=== PATIENT | female | born 1960 | race Hispanic/Latino ===

== ENCOUNTER 2016-12-14 19:14 | Emergency (ER) | payer SELFPAY ==
[2016-12-14 19:33] VITALS: BP 143/82; PULSE 72; RESP 18; TEMP 97.9; O2SAT 97
[2016-12-14] MEDS ORDERED: Albuterol-Ipratrop 3 mg / 0.5 (3 ml) UD ONE (20:08)
[2016-12-14] MEDS ORDERED: Albuterol-Ipratrop 3 mg / 0.5 (3 ml) UD INH STA (20:10)
--- NOTE | 2016-12-14 21:07 | ED PDOC ---
HPI: CCC, URI, Sore Throat Time Seen by Provider: 12/14/16 19:42 Chief Complaint (Nursing): Cough, Cold, Congestion Chief Complaint (Provider): Cough x 3 days History Per: Patient History/Exam Limitations: no limitations Onset/Duration Of Symptoms: Days Current Symptoms Are (Timing): Still Present Associated Symptoms: Fever (Tactile ), Cough, Sputum (White ). denies: Sore Throat Past Medical History Vital Signs: Last Vital Signs Temp 97.9 F 12/14/16 19:29 Pulse 72 12/14/16 19:29 Resp 18 12/14/16 19:29 BP 143/82 12/14/16 19:29 Pulse Ox 97 12/14/16 19:29 - Family History Family History: States: Unknown Family Hx - Home Medications Home Medications: Ambulatory Orders Medication Instructions Recorded Cephalexin [Keflex] 500 mg PO BID #14 cap 12/25/15 Amoxicillin/Clavulanate [Augmentin 1 tab PO BID #20 tab 08/13/16 875 MG-125 MG] Albuterol HFA [Ventolin HFA 90 1 puff IH BID PRN #1 unit 12/14/16 mcg/actuation (8 g)] Azithromycin 250 mg PO DAILY #6 tab 12/14/16 - Allergies Allergies/Adverse Reactions: Allergies Allergy/AdvReac Type Severity Reaction Status Date / Time No Known Allergies Allergy Verified 08/13/16 14:19 Review of Systems ROS Statement: Except As Marked, All Systems Reviewed And Found Negative Constitutional: Positive for: Fever. Negative for: Chills Cardiovascular: Negative for: Chest Pain Respiratory: Positive for: Cough. Negative for: Shortness of Breath Physical Exam - Reviewed Nursing Documentation Reviewed: Yes Vital Signs Reviewed: Yes - Physical Exam Appears: Positive for: Well, Non-toxic, No Acute Distress Head Exam: Positive for: ATRAUMATIC, NORMAL INSPECTION, NORMOCEPHALIC Skin: Positive for: Normal Color, Warm, DRY Eye Exam: Positive for: Normal appearance ENT: Positive for: Normal ENT Inspection Neck: Positive for: Normal, Painless ROM Cardiovascular/Chest: Positive for: Regular Rate, Rhythm Respiratory: Positive for: Wheezing (Diffuse ). Negative for: Respiratory Distress Gastrointestinal/Abdominal: Positive for: Normal Exam, Bowel Sounds, Soft Back: Positive for: Normal Inspection Extremity: Positive for: Normal ROM Neurologic/Psych: Positive for: Alert, Oriented - ECG O2 Sat by Pulse Oximetry: 97 Disposition - Clinical Impression Clinical Impression: Acute bronchitis - Patient ED Disposition Is Patient to be Admitted: No Counseled Patient/Family Regarding: Diagnosis, Need For Followup, Rx Given - Disposition Referrals: [facility] [Outside] Disposition: Routine/Home Disposition Time: 21:08 Condition: GOOD Prescriptions: Albuterol HFA [Ventolin HFA 90 mcg/actuation (8 g)] 1 puff IH BID PRN #1 unit PRN Reason: wheezing Azithromycin 250 mg PO DAILY #6 tab Instructions: Acute Bronchitis (ED) Print Language: FAROESE
--- NOTE | 2016-12-15 10:25 | RAD ---
HISTORY: cough x 4 days COMPARISON: Chest x-ray performed 07/11/14 TECHNIQUE: Chest PA and lateral FINDINGS: Examination limited by habitus and hypoinflation. LUNGS: No focal consolidation. Please note that chest x-ray has limited sensitivity for the detection of pulmonary masses. PLEURA: No significant pleural effusion identified. No definite pneumothorax . CARDIOVASCULAR: Heart size appears top normal. OSSEOUS STRUCTURES: Osseous demineralization. Degenerative changes. Mild kyphosis centered at the thoracolumbar spine. VISUALIZED UPPER ABDOMEN: Unremarkable. OTHER FINDINGS: None. IMPRESSION: No focal consolidation, significant pleural effusion, or definite pneumothorax identified.
== END 2016-12-14 21:14 | disposition home or self-care (01) ==
LOC: H.ER 19:14
DX: J20.9 Acute bronchitis, unspecified (principal); R06.2 Wheezing

== ENCOUNTER 2018-06-13 02:00 | Emergency (ER) | payer SELFPAY ==
[2018-06-13 02:37] VITALS: RESP 16
--- NOTE | 2018-06-13 02:58 | ED PDOC ---
HPI: Back Time Seen by Provider: 06/13/18 02:48 Chief Complaint (Nursing): Back Pain Chief Complaint (Provider): back pain History Per: Patient (58 y/o female here with left flank pain intermittent since last night. Denies any dysuria/notes worsening pain with movement.) Past Medical History Reviewed: Historical Data, Nursing Documentation, Vital Signs Vital Signs: Last Vital Signs Temp 98.2 F 06/13/18 02:34 Pulse 63 06/13/18 02:34 Resp 16 06/13/18 02:34 BP 144/67 06/13/18 02:34 Pulse Ox 97 06/13/18 02:34 - Medical History PMH: HTN - Family History Family History: States: Unknown Family Hx - Home Medications Home Medications: Ambulatory Orders Medication Instructions Recorded Cephalexin [Keflex] 500 mg PO BID #14 cap 12/25/15 Amoxicillin/Clavulanate [Augmentin 1 tab PO BID #20 tab 08/13/16 875 MG-125 MG] Albuterol HFA [Ventolin HFA 90 1 puff IH BID PRN #1 unit 12/14/16 mcg/actuation (8 g)] Azithromycin 250 mg PO DAILY #6 tab 12/14/16 Docusate Sodium [Colace] 100 mg PO BID #14 capsule 06/13/18 Ibuprofen [Motrin] 600 mg PO Q8 PRN #21 tab 06/13/18 Phosphate Enema [Fleet Enema 135 135 ml RC ONCE PRN #1 nma 06/13/18 Ml] - Allergies Allergies/Adverse Reactions: Allergies Allergy/AdvReac Type Severity Reaction Status Date / Time No Known Allergies Allergy Verified 04/29/17 02:38 Review of Systems ROS Statement: Except As Marked, All Systems Reviewed And Found Negative Physical Exam - Reviewed Nursing Documentation Reviewed: Yes Vital Signs Reviewed: Yes - Physical Exam Appears: Positive for: Well, Non-toxic, No Acute Distress Head Exam: Positive for: ATRAUMATIC, NORMAL INSPECTION, NORMOCEPHALIC Skin: Positive for: Normal Color, Warm, DRY Eye Exam: Positive for: EOMI, Normal appearance, PERRL ENT: Positive for: Normal ENT Inspection Neck: Positive for: Normal, Painless ROM Cardiovascular/Chest: Positive for: Regular Rate, Rhythm Respiratory: Positive for: CNT, Normal Breath Sounds Gastrointestinal/Abdominal: Positive for: Normal Exam, Soft, Tenderness (left upper quadrant/ left flank) Back: Positive for: Normal Inspection Extremity: Positive for: Normal ROM Neurologic/Psych: Positive for: Alert, Oriented - Laboratory Results Result Diagrams: 06/13/18 03:56 06/13/18 03:56 - ECG O2 Sat by Pulse Oximetry: 97 Medical Decision Making Medical Decision Makin:44 CT Abd Pelvis FINDINGS: The visualized lung bases are unremarkable. Normal unenhanced liver. Normal gallbladder and extrahepatic biliary system. Normal unenhanced spleen. Normal pancreas. Normal bilateral adrenal glands. Normal size of the right kidney. There is no right renal mass. There are no right renal calculi. There is no right hydronephrosis. Normal visualized right ureter. Normal size of the left kidney. There is no left renal mass. There are no left renal calculi. There is no left hydronephrosis. Normal visualized left ureter. Fluid-filled distended stomach. Normal small intestine. Uncomplicated diverticulosis of moderate amount of fecal residue in the colon. The appendix is visualized and appears normal. There is no demonstrated peritoneal fluid. Normal abdominal aorta. Normal inferior vena cava. Normal retroperitoneum. Normal urinary bladder. There is no pelvic mass lesion or lymphadenopathy. There is no pelvic fluid. Normal abdominal wall. Normal osseous structures. IMPRESSION: Gastroparesis/ileus. Constipation. Disposition - Clinical Impression Clinical Impression: Back strain, Constipation - Patient ED Disposition Is Patient to be Admitted: No - Disposition Referrals: [facility] [Outside] Disposition: Routine/Home Disposition Time: 05:02 Condition: FAIR Prescriptions: Docusate Sodium [Colace] 100 mg PO BID #14 capsule Ibuprofen [Motrin] 600 mg PO Q8 PRN #21 tab PRN Reason: Pain, Moderate (4-7) Phosphate Enema [Fleet Enema 135 Ml] 135 ml RC ONCE PRN #1 nma PRN Reason: Constipation Instructions: Constipation in Adults, Low Back Pain (DC) Forms: [facility] ED School/Work Excuse Print Language: EAST TIM[place]ESE
[2018-06-13 03:59] LABS: BASO # 0.1 K/uL (0.0-0.2); BASO % 0.7 % (0.0-2.0); EOS # 0.2 K/uL (0.0-0.7); EOS % 3.3 % (0.0-4.0); HEMOGLOBIN 12.8 g/dL (12.0-16.0); LYMPH # 2.2 K/uL (1.0-4.3); LYMPH % 29.4 % (20.0-40.0); MEAN CELL VOLUME 85.1 fl (81.0-99.0); MEAN CORPUSCULAR HEMOGLOBIN 28.3 pg (27.0-31.0); MEAN CORPUSCULAR HGB CONC 33.3 g/dL (33.0-37.0); MEAN PLATELET VOLUME 9.1 fl (7.2-11.7); MONO # 0.6 K/uL (0.0-0.8); MONO % 8.4 % (0.0-10.0); NEUT # 4.4 K/uL (1.8-7.0); NEUT % 58.2 % (50.0-75.0); NRBC % 0.1 % (0.0-0.0); RBC 4.52 Mil/uL (3.80-5.20); RED CELL DISTRIBUTION WIDTH 12.9 % (11.5-14.5); WHITE BLOOD COUNT 7.5 K/uL (4.8-10.8)
[2018-06-13 04:14] LABS: ALB/GLOB RATIO 1.5 (1.0-2.1); ALBUMIN 4.1 g/dL (3.5-5.0); ALT/SGPT 31 U/L (9-52); AST/SGOT 24 U/L (14-36); BLOOD UREA NITROGEN 13 mg/dl (7-17); CALCIUM 8.7 mg/dL (8.4-10.2); GFR NON-AFRICAN AMERICAN > 60; LIPASE 34 U/L (23-300)
[2018-06-13 04:27] LABS: SQUAMOUS EPITHIAL < 1 /hpf (0-5); URINE BILIRUBIN NEGATIVE (NEGATIVE); URINE BLOOD NEGATIVE (NEGATIVE); URINE CLARITY SLIGHTY-CLOUDY (Clear); URINE COLOR STRAW (YELLOW); URINE GLUCOSE (UA) NEG (NEGATIVE); URINE LEUKOCYTE ESTERASE NEG Leu/uL (Negative); URINE PROTEIN NEGATIVE (NEGATIVE); URINE UROBILINOGEN 0.2-1.0 mg/dL (0.2-1.0)
[2018-06-13 06:32] VITALS: BP 131/62; PULSE 66; TEMP 98; O2SAT 98
--- NOTE | 2018-06-13 08:04 | CARD ---
APPROVED REPORT Date of service: 06/13/2018 EKG Measurement Heart [id number] <Conclusion> Sinus bradycardia Otherwise normal ECG
--- NOTE | 2018-06-13 13:30 | CT ---
Date of service: 06/13/2018 PROCEDURE: CT Abdomen and Pelvis without intravenous contrast HISTORY: left flank pain r/o kidney stone COMPARISON: None. TECHNIQUE: Unenhanced. Neither IV nor oral contrast administered Radiation dose: Total exam DLP = 324.65 mGy-cm. This CT exam was performed using one or more of the following dose reduction techniques: Automated exposure control, adjustment of the mA and/or kV according to patient size, and/or use of iterative reconstruction technique. FINDINGS: LOWER THORAX: Unremarkable. LIVER: Unremarkable. No gross lesion or ductal dilatation. GALLBLADDER AND BILE DUCTS: Unremarkable. PANCREAS: Unremarkable. No gross lesion or ductal dilatation. SPLEEN: Unremarkable. ADRENALS: Unremarkable. No mass. KIDNEYS AND URETERS: Unremarkable. No hydronephrosis. No solid mass. VASCULATURE: Unremarkable. No aortic aneurysm. No atherosclerotic calcification or mural plaque present. BOWEL: Constipation without fecal impaction or obstruction. APPENDIX: Unremarkable. Normal appendix. PERITONEUM: Unremarkable. No free fluid. No free air. LYMPH NODES: Unremarkable. No enlarged lymph nodes. BLADDER: Unremarkable. REPRODUCTIVE: Unremarkable. BONES: No acute fracture. OTHER FINDINGS: None. IMPRESSION: No significant or acute findings to account for/ related to the clinical presentation. Concordant results (preliminary interpretation) provided by [employer]. Procedure Completed: 03:03. Preliminary Report: Dictated and Authenticated: 03:44. Final Interpretation: 13:26. June 13, 2018
== END 2018-06-13 05:10 | disposition home or self-care (01) ==
LOC: H.ER 02:00
DX: S39.012A Strain of muscle, fascia and tendon of lower back, initial encounter (principal); K59.00 Constipation, unspecified; I10 Essential (primary) hypertension

== ENCOUNTER 2018-11-30 15:59 | Emergency (ER) | payer OTHER, SELFPAY ==
--- NOTE | 2018-11-30 17:10 | ED PDOC ---
HPI: Abdomen Time Seen by Provider: 11/30/18 16:14 Chief Complaint (Nursing): Abdominal Pain Chief Complaint (Provider): Abd Pain History Per: Patient History/Exam Limitations: no limitations Outside of [place] travel?: No Current Symptoms Are (Timing): Still Present Location Of Pain/Discomfort: Epigastric, LUQ Quality Of Discomfort: "Pain" Associated Symptoms: Back Pain (left sided ) Exacerbating Factors: Movement Additional History Per: Patient Additional Complaint(s): 58 year old female presents to the emergency room c/o left chest pain below the breast radiating to left flank for 5 days. Patient states pain is worse with movement but its constantly present. She noted pain upon rising from bed and when doing shores around the house. She states she has mild shortness of breath due to pain. Patient also reports intermittent episodes of chills and "feeling" hot. Patient denies cough, urinary complaints, viral illness symptoms in the last few days. Past Medical History Reviewed: Historical Data, Nursing Documentation, Vital Signs Vital Signs: Last Vital Signs Temp 97.9 F 11/30/18 16:04 Pulse 64 11/30/18 16:04 Resp 16 11/30/18 16:04 BP 137/60 11/30/18 16:04 Pulse Ox 99 11/30/18 16:04 Primary Care Provider: Non [facility] Provider, - Medical History PMH: HTN - Surgical History Surgical History: No Surg Hx - Family History Family History: States: Unknown Family Hx - Living Arrangements Living Arrangements: With Family - Social History Alcohol: None Drugs: Denies - Home Medications Home Medications: Ambulatory Orders Medication Instructions Recorded Cephalexin [Keflex] 500 mg PO BID #14 cap 12/25/15 Amoxicillin/Clavulanate [Augmentin 1 tab PO BID #20 tab 08/13/16 875 MG-125 MG] Albuterol HFA [Ventolin HFA 90 1 puff IH BID PRN #1 unit 12/14/16 mcg/actuation (8 g)] Azithromycin 250 mg PO DAILY #6 tab 12/14/16 Docusate Sodium [Colace] 100 mg PO BID #14 capsule 06/13/18 Ibuprofen [Motrin] 600 mg PO Q8 PRN #21 tab 06/13/18 Phosphate Enema [Fleet Enema 135 135 ml RC ONCE PRN #1 nma 12/06/18 Ml] Cyclobenzaprine [Cyclobenzaprine 10 mg PO Q8H PRN #10 tab 11/30/18 HCl] Naproxen 500 mg PO Q12H PRN #30 tab 11/30/18 - Allergies Allergies/Adverse Reactions: Allergies Allergy/AdvReac Type Severity Reaction Status Date / Time No Known Allergies Allergy Verified 04/29/17 02:38 Review of Systems ROS Statement: Except As Marked, All Systems Reviewed And Found Negative Constitutional: Positive for: Chills, Sweats. Negative for: Fever, Weakness, Malaise Eyes: Positive for: Eyelid Inflammation, Redness ENT: Negative for: Ear Pain, Ear Discharge, Nose Pain, Mouth Pain, Throat Pain, Throat Swelling Cardiovascular: Positive for: Chest Pain. Negative for: Palpitations Respiratory: Negative for: Shortness of Breath Gastrointestinal: Negative for: Nausea, Vomiting, Abdominal Pain Genitourinary Female: Negative for: Vaginal Discharge, Vaginal Bleeding Musculoskeletal: Positive for: Back Pain (left flank ) Physical Exam - Reviewed Nursing Documentation Reviewed: Yes Vital Signs Reviewed: Yes - Physical Exam Appears: Positive for: Well, Non-toxic, No Acute Distress Head Exam: Positive for: ATRAUMATIC, NORMAL INSPECTION, NORMOCEPHALIC Skin: Positive for: Normal Color, Warm, DRY Eye Exam: Positive for: Normal appearance, PERRL ENT: Positive for: Normal ENT Inspection. Negative for: Pharyngeal Erythema Neck: Positive for: Normal, Painless ROM Cardiovascular/Chest: Positive for: Bradycardia. Negative for: Chest Non Tender (tenderness under left breast. neg for rashes, redness or wounds. ) Respiratory: Positive for: Normal Breath Sounds Pulses-Radial (L): 2+ Pulses-Radial (R): 2+ Gastrointestinal/Abdominal: Positive for: Normal Exam, Soft Back: Positive for: L CVA Tenderness, R CVA Tenderness. Negative for: Vertebral Tenderness, Decreased ROM Extremity: Positive for: Normal ROM. Negative for: Tenderness, Pedal Edema, Calf Tenderness, Deformity, Swelling Neurological/Psych: Positive for: Awake, Alert, Normal Tone, Oriented - Laboratory Results Result Diagrams: 11/30/18 17:20 11/30/18 17:20 - ECG ECG Rhythm: Positive for: Sinus Bradycardia Interpretation Of ECG: seen and interpretated by dr. cohen. Rate: 56 O2 Sat by Pulse Oximetry: 99 Medical Decision Making Medical Decision Making: --cbc --cmp --lipase --troponin --chest xray --ua 19:00 labs reviewed by me, unremarkable cxr: no active disease noted. Clinical fi ndings discussed with patient. patient re-assessed at this time, she states she feels better. Impression: Muscle Spasms rx: naproxen, flexeril. warm compresses while awake and tolerated. Patient given referral to [facility] clinic for follow-up. Return to ED precautions given. Patient state she understands and agrees with plan. --advised no driving, drinking operating heavy machinery while taking flexeril. Disposition - Clinical Impression Clinical Impression: Muscle spasm - Patient ED Disposition Is Patient to be Admitted: No Counseled Patient/Family Regarding: Diagnosis, Need For Followup, Rx Given - Disposition Referrals: [facility] [place] [Outside] Disposition: Routine/Home Disposition Time: 19:24 Condition: IMPROVED Prescriptions: Cyclobenzaprine [Cyclobenzaprine HCl] 10 mg PO Q8H PRN #10 tab PRN Reason: Muscle Spasm Naproxen 500 mg PO Q12H PRN #30 tab PRN Reason: Pain, Moderate (4-7) Instructions: Muscle Spasms (DC) Forms: [employer] (Pashto) Print Language: JAPANESE - POA Present On Arrival: None
[2018-11-30 17:44] LABS: BASO % 0.4 % (0.0-2.0); EOS # 0.1 K/uL (0.0-0.7); EOS % 1.8 % (0.0-4.0); HEMOGLOBIN 12.7 g/dL (12.0-16.0); LYMPH # 1.9 K/uL (1.0-4.3); LYMPH % 31.7 % (20.0-40.0); MEAN CELL VOLUME 84.9 fl (81.0-99.0); MEAN CORPUSCULAR HEMOGLOBIN 27.5 pg (27.0-31.0); MEAN CORPUSCULAR HGB CONC 32.3 g/dL (33.0-37.0); MEAN PLATELET VOLUME 9.7 fl (7.2-11.7); MONO # 0.4 K/uL (0.0-0.8); MONO % 7.2 % (0.0-10.0); NEUT # 3.5 K/uL (1.8-7.0); NEUT % 58.9 % (50.0-75.0); NRBC % 0.1 % (0.0-0.0); RBC 4.63 Mil/uL (3.80-5.20); RED CELL DISTRIBUTION WIDTH 13.2 % (11.5-14.5); WHITE BLOOD COUNT 5.9 K/uL (4.8-10.8)
[2018-11-30 18:01] LABS: SQUAMOUS EPITHIAL < 1 /hpf (0-5); URINE BILIRUBIN NEGATIVE (NEGATIVE); URINE BLOOD NEGATIVE (NEGATIVE); URINE CLARITY CLEAR (Clear); URINE COLOR STRAW (YELLOW); URINE GLUCOSE (UA) NEG (NEGATIVE); URINE LEUKOCYTE ESTERASE NEG Leu/uL (Negative); URINE PROTEIN NEGATIVE (NEGATIVE); URINE UROBILINOGEN 0.2-1.0 mg/dL (0.2-1.0)
[2018-11-30 18:03] LABS: ALB/GLOB RATIO 1.6 (1.0-2.1); ALBUMIN 4.3 g/dL (3.5-5.0); ALT/SGPT 27 U/L (9-52); AST/SGOT 27 U/L (14-36); BLOOD UREA NITROGEN 10 mg/dl (7-17); GFR NON-AFRICAN AMERICAN > 60; LIPASE 29 U/L (23-300)
[2018-11-30 18:10] VITALS: PULSE 56
[2018-11-30 19:39] VITALS: BP 120/64; RESP 18; TEMP 97.7; O2SAT 98
--- NOTE | 2018-12-01 09:36 | RAD ---
Date of service: 11/30/2018 HISTORY: left sided chest pain COMPARISON: Chest radiographs 02/13/2017. TECHNIQUE: Chest PA and lateral views FINDINGS: LUNGS: No active pulmonary disease. PLEURA: No significant pleural effusion identified. No pneumothorax apparent. CARDIOVASCULAR: No aortic atherosclerotic calcification present. Normal cardiac size. No pulmonary vascular congestion. OSSEOUS STRUCTURES: Kyphoscoliotic thoracic spinal deformity again evident. VISUALIZED UPPER ABDOMEN: Normal. OTHER FINDINGS: None. IMPRESSION: No interval acute cardiopulmonary disease appreciated.
== END 2018-11-30 19:30 | disposition home or self-care (01) ==
LOC: H.ER 15:59
DX: M62.838 Other muscle spasm (principal); I10 Essential (primary) hypertension
CPT/HCPCS: 71046; 80053; 81003; 83690; 84484; 85025; 96374; 99283; J1885